=== PATIENT | male | born 1950 | race Caucasian/White ===

== ENCOUNTER 2017-01-27 05:32 | Inpatient (IN) | payer MEDICARE ==
[2017-01-20 10:30] VITALS: BP 121/69
[2017-01-26 09:20] LABS: ASPARTATE AMINO TRANSFERASE 14 U/L (15-37); BLOOD UREA NITROGEN 17 mg/dL (7-18)
[~2017-01-27] VITALS: Ht 172.7 cm; Wt 82.5 kg
[~2017-01-27 05:32] MED LIST: LISI-170 PO; METO-95 PO; OMEP40CA6 PO; SPIR50TA2 PO
[2017-01-27] MEDS ORDERED: LACTATED RINGERS 1,000 ML IV SCH (05:58)
[2017-01-27] MEDS ORDERED: LIDOCAINE 1%, 2ML SQ PRN (06:00)
[2017-01-27] MEDS ORDERED: BUPIVACAINE/PF-EPI 0.5% 1:200K ONE (06:43)
[2017-01-27] MEDS ORDERED: EPINEPHRINE 1 MG/ML, 1ML ONE (06:43)
[2017-01-27] MEDS ORDERED: THROMBIN 5,000 UNIT VIAL TP ONE (06:43)
[2017-01-27] MEDS ORDERED: BUPIVACAINE/PF 0.25% ONE (06:43)
[2017-01-27] MEDS ORDERED: FENTANYL PF 250 MCG/5ML ONE (07:18)
[2017-01-27] MEDS ORDERED: KETAMINE 10 MG/ML, 20ML ONE (07:18)
[2017-01-27] MEDS ORDERED: MIDAZOLAM 1 MG/ML, 2ML ONE (07:18)
[2017-01-27] MEDS ORDERED: ROCURONIUM 10 MG/ML ONE (07:32)
[2017-01-27] MEDS ORDERED: CEFOTETAN 2 GM ONE (07:32)
[2017-01-27] MEDS ORDERED: GLYCOPYRROLATE 0.2MG/1ML ONE (07:32)
[2017-01-27] MEDS ORDERED: ONDANSETRON 2MG/ML, 2ML ONE (07:32)
[2017-01-27] MEDS ORDERED: PHENYLEPHRINE 10 MG/ML ONE (07:32)
[2017-01-27] MEDS ORDERED: PROPOFOL 10 MG/ML, 20ML ONE (07:32)
[2017-01-27] MEDS ORDERED: NEOSTIGMINE 1 MG/ML, 10ML ONE (07:32)
[2017-01-27] MEDS ORDERED: METOCLOPRAMIDE 5 MG/ML, 2ML ONE (07:32)
[2017-01-27] MEDS ORDERED: SUFentanil 50 MCG/ML, 1ML ONE (08:44)
[2017-01-27] MEDS ORDERED: LABETALOL 5MG/ML, 20ML IV PRN (11:00)
[2017-01-27] MEDS ORDERED: HYDROmorphone 1 MG/ML, 1ML IV PRN ×2 (11:00→13:30)
[2017-01-27] MEDS ORDERED: ONDANSETRON 2MG/ML, 2ML IVPush PRN (11:00)
[2017-01-27] MEDS ORDERED: MIDAZOLAM 1 MG/ML, 2ML IV PRN (11:00)
[2017-01-27] MEDS ORDERED: hydrALAzine 20 MG/ML, 1ML IV PRN (11:00)
[2017-01-27] MEDS ORDERED: MEPERIDINE/PF 25MG/0.5ML IVPush PRN (11:00)
[2017-01-27] MEDS ORDERED: OXYcodone 5 MG/5 ML ORAL.SOL UDC PO PRN (11:00)
[2017-01-27] MEDS ORDERED: FENTANYL PF 100 MCG/2ML IV PRN (11:00)
[2017-01-27] MEDS ORDERED: PROMETHAZINE 25 MG/ML, 1ML IV PRN (11:00)
[2017-01-27 11:21] LABS: ASPARTATE AMINO TRANSFERASE 15 U/L (15-37); BLOOD UREA NITROGEN 13 mg/dL (7-18)
[2017-01-27 13:15] VITALS: BP 107/73
[2017-01-27] MEDS ORDERED: ONDANSETRON 2MG/ML, 2ML IV PRN (13:30)
[2017-01-27] MEDS ORDERED: D5%-0.9% NACL 1,000 ML IV SCH (13:30)
[2017-01-27] MEDS: CEFAZOLIN PMX 1GM/50ML 50 ML IVPB SCH ×2 (15:33→23:59)
[2017-01-27 17:20] VITALS: BP 117/72
[2017-01-27] MEDS ORDERED: SODIUM CHLORIDE 0.9%, 500ML IVBOLUS ONE ×2 (18:00→20:00)
[2017-01-27 20:11] VITALS: BP 114/61
[2017-01-27] MEDS: FAMOTIDINE 20 MG TABLET PO SCH (20:12)
[2017-01-27] MEDS: LISINOPRIL 20 MG TABLET PO SCH (20:12)
[2017-01-27] MEDS: OXYcodone IR 5MG TABLET PO PRN (21:26)
[2017-01-28 01:33] VITALS: BP 122/68
[2017-01-28] MEDS: OXYcodone IR 5MG TABLET PO PRN ×6 (02:58→21:43)
[2017-01-28 04:31] VITALS: BP 113/63
[2017-01-28 05:45] LABS: BLOOD UREA NITROGEN 12 mg/dL (7-18)
[2017-01-28 05:50] LABS: ASPARTATE AMINO TRANSFERASE 10 U/L (15-37)
[2017-01-28] MEDS: METOPROLOL SUCCINATE 100 MG TAB.ER.24H PO SCH (06:01)
[2017-01-28 07:15] VITALS: BP 129/73
[2017-01-28] MEDS ORDERED: OMEPRAZOLE 20 MG CAPSULE.DR PO SCH (07:30)
[2017-01-28] MEDS ORDERED: OXYcodone IR 5MG TABLET ONE (08:00)
[2017-01-28] MEDS: FAMOTIDINE 20 MG TABLET PO SCH ×2 (08:50→21:43)
[2017-01-28] MEDS: SPIRONOLACTONE 50 MG TABLET PO SCH (08:50)
[2017-01-28] MEDS ORDERED: FUROSEMIDE 40 MG/4 ML IV ONE (10:30)
[2017-01-28 13:23] VITALS: BP 114/70
[2017-01-28] MEDS ORDERED: D5%-0.9% NACL 1,000 ML IV SCH (13:30)
[2017-01-28 20:37] VITALS: BP 136/67
[2017-01-28] MEDS: LISINOPRIL 20 MG TABLET PO SCH (21:43)
[2017-01-29 02:14] VITALS: BP 121/71
[2017-01-29] MEDS: OXYcodone IR 5MG TABLET PO PRN ×5 (02:35→22:19)
[2017-01-29 05:19] LABS: BLOOD UREA NITROGEN 14 mg/dL (7-18)
[2017-01-29 05:31] LABS: ASPARTATE AMINO TRANSFERASE 13 U/L (15-37)
[2017-01-29] MEDS: METOPROLOL SUCCINATE 100 MG TAB.ER.24H PO SCH (06:06)
[2017-01-29 06:07] VITALS: BP 124/68
[2017-01-29 07:00] VITALS: BP 110/67
[2017-01-29] MEDS ORDERED: POLYETHYLENE GLYCOL 17 GM PACKET PO PRN (08:00)
[2017-01-29] MEDS ORDERED: BISACODYL 10 MG SUPP PR PRN (08:00)
[2017-01-29] MEDS: SPIRONOLACTONE 50 MG TABLET PO SCH (08:48)
[2017-01-29] MEDS: THIAMINE 100MG TABLET PO SCH (08:48)
[2017-01-29] MEDS: MULTIVITAMIN 1 TABLET PO SCH (08:48)
[2017-01-29] MEDS: DOCUSATE 100 MG CAPSULE PO SCH ×2 (08:48→22:20)
[2017-01-29] MEDS: FOLIC ACID 1 MG TABLET PO SCH (08:48)
[2017-01-29] MEDS: FAMOTIDINE 20 MG TABLET PO SCH ×2 (08:48→22:19)
[2017-01-29] MEDS ORDERED: FUROSEMIDE 20 MG/2 ML IV ONE (14:30)
[2017-01-29 15:10] VITALS: BP 110/68
[2017-01-29 19:10] VITALS: BP 90/48
[2017-01-29] MEDS: LISINOPRIL 20 MG TABLET PO SCH (22:19)
[2017-01-30 01:08] VITALS: BP 119/77
[2017-01-30] MEDS: OXYcodone IR 5MG TABLET PO PRN ×2 (05:25→10:36)
[2017-01-30] MEDS: METOPROLOL SUCCINATE 100 MG TAB.ER.24H PO SCH (05:27)
[2017-01-30 05:28] VITALS: BP 121/70
[2017-01-30 07:14] VITALS: BP 101/62
[2017-01-30] MEDS: THIAMINE 100MG TABLET PO SCH (08:23)
[2017-01-30] MEDS: SPIRONOLACTONE 50 MG TABLET PO SCH (08:23)
[2017-01-30] MEDS: FOLIC ACID 1 MG TABLET PO SCH (08:23)
[2017-01-30] MEDS: FAMOTIDINE 20 MG TABLET PO SCH (08:23)
[2017-01-30] MEDS: DOCUSATE 100 MG CAPSULE PO SCH (08:23)
[2017-01-30] MEDS: MULTIVITAMIN 1 TABLET PO SCH (08:23)
[2017-01-30 08:30] LABS: BLOOD UREA NITROGEN 15 mg/dL (7-18)
[2017-01-30] MEDS ORDERED: FUROSEMIDE 20 MG TABLET PO SCH (09:30)
[2017-01-30 12:07] VITALS: BP 108/69
[2017-01-30 13:30] VITALS: BP 108/69
== END 2017-01-30 13:50 | disposition home or self-care (01) | DRG 656 ==
LOC: ORIP 05:32 → 4NOR 12:38
PROVIDERS: ADMIT Urology; ATTEND Urology
PROC: 8E0W4CZ Robotic Assisted Procedure of Trunk Region, Percutaneous Endoscopic Approach (ICD-10-PCS; 2017-01-27)
PROC: 0TT04ZZ Resection of Right Kidney, Percutaneous Endoscopic Approach (ICD-10-PCS; principal; 2017-01-27 07:30)
DX: C64.1 Malignant neoplasm of right kidney, except renal pelvis (principal); E43 Unspecified severe protein-calorie malnutrition; E87.1 Hypo-osmolality and hyponatremia; D64.9 Anemia, unspecified; D72.829 Elevated white blood cell count, unspecified; D75.89 Other specified diseases of blood and blood-forming organs; E87.8 Other disorders of electrolyte and fluid balance, not elsewhere classified; K42.9 Umbilical hernia without obstruction or gangrene; K59.00 Constipation, unspecified; K70.11 Alcoholic hepatitis with ascites; I10 Essential (primary) hypertension; R73.9 Hyperglycemia, unspecified; K70.31 Alcoholic cirrhosis of liver with ascites; M10.9 Gout, unspecified; Z87.891 Personal history of nicotine dependence; Z72.89 Other problems related to lifestyle; Z79.899 Other long term (current) drug therapy; Z82.49 Family history of ischemic heart disease and other diseases of the circulatory system; Z68.27 Body mass index [BMI] 27.0-27.9, adult; D47.3 Essential (hemorrhagic) thrombocythemia; F10.10 Alcohol abuse, uncomplicated
CPT/HCPCS: 36415; 80048; 80053; 82330; 82803; 82947; 84132; 84295; 85014; 85018; 85025; 85610; 86850; 86900; 86923; 88307; J0171; J0690; J1940; J2250; J2405; J2704; J2710; J3010; J3490; J7042; C1760; J2370; J2765; J7040; J7120; S0074